=== PATIENT | female | born 1995 | race Two or more races ===

== ENCOUNTER 2020-12-20 18:48 | Emergency (ER) | payer MEDICAID, SELFPAY ==
[2020-12-20 18:49] VITALS: BP 115/79; PULSE 87; RESP 15; TEMP 36.2; O2SAT 99; BMI 30.2
[2020-12-20 20:00] LABS: Absolute Lymphocyte Count 4.03 X10^3/uL (0.83-4.51); Absolute Neutrophil Count 4.7 X10^3/uL (2.0-7.7); Basophil# 0.08 X10^3/uL; Basophil% 0.8 % (0-1); Eosinophil# 0.05 X10^3/uL; Eosinophils% 0.5 % (0-5); Hemoglobin 14.3 g/dL (12.0-15.0); Lymphocyte # 4.03 X10^3/ul (0.83-4.51); Lymphocyte % 41.4 % (19-41); Mean Corpuscular Hgb 30.8 pg (27.0-32.0); Mean Corpuscular Volume 90.5 fL (81-99); Mean Platelet Vol. 8.9 fl (6.2-12.0); Monocyte% 8.2 % (0-10); NRBC Flagged by Analyzer 0 % (0-5); Neutrophil # 4.73 X10^3/uL (2.7-7.7); Neutrophil % 48.7 % (47-70); Platelet Count 348 K/mm3 (150-450); RBC Distribution Width SD 42.6 fl (35.1-43.9); Red Blood Count 4.64 M/mm3 (4.2-5.4); White Blood Count 9.7 K/mm3 (4.4-11.0)
[2020-12-20 20:07] LABS: Bacteria 0 SEEN /hpf (None Seen); Mucous, Urine 0 SEEN /hpf (<or=2+); Red Blood Cells-Urine 0 SEEN /hpf (0-5); White Blood Cells 0 SEEN /hpf (0-5)
[2020-12-20 20:09] LABS: Color, Urine Straw (Yellow); Glucose, Dipstick Normal (Normal); Ketone-Dipstick Negative (Negative); Leukocyte Esterase-Dipstick Negative /ul (Negative); Nitrite-Dipstick Negative (Negative); Occult Blood-Urine Negative /ul (Negative); Protein-Dipstick Negative (Negative); Specific Gravity, Urine 1.005 (1.002-1.030); Urine Bilirubin Dipstick Negative (Negative); Urine Clarity Clear (Clear); Urine Urobilinogen Normal (Normal)
[2020-12-20 20:12] LABS: Internal QC Validated? YES +Cl - CLEAR BKGD; Pregnancy, Serum, hCG Quali. NEGATIVE Negative
[2020-12-20 20:21] LABS: ALB/GLOB Ratio 0.8 RATIO (0.9-2.4); AST(SGOT) 11 U/L (15-37); Alanine Aminotransfer ALT/SGPT 15 U/L (13-56); Albumin, Serum 3.6 g/dL (3.2-5.0); Alkaline Phosphatase 72 U/L (45-117); Anion Gap 10 (5-15); BUN 8 mg/dL (7-18); BUN/Creat Ratio 10.4 RATIO (10-20); Calcium,Total 8.7 mg/dL (8.5-10.1); Chloride 109 mmol/L (98-107); Creatinine, Serum 0.77 mg/dL (0.55-1.02); EST Glomerular Filtration Rate 99 mL/min (>60); Est Glom Filt Rate - Afr Amer 119 mL/min (>60); Estimated Creatinine Clearance 85.75 ml/min; Globulin 4.3 g/dL (2.2-4.2); Glucose 79 mg/dL (74-106); Potassium 3.1 mmol/L (3.5-5.1); Protein, Total 7.9 g/dL (6.4-8.2); Sodium Level 143 mmol/L (136-145)
[2020-12-20 20:25] LABS: Squamous Epithelial Cells - UA 0-5 SEEN /hpf (5-10)
--- NOTE | 2020-12-20 21:15 | EX.ED.DYSGE1 ---
HPI History of Present Illness Chief Complaint: Other, Pain/Inj Informant: patient Onset/Context/Timing Onset: Yesterday Context: Gradual Onset Timing: Continuous Quality: Fever Location: Generalized Worsened by: Nothing Relieved by: Alcohol Narrative Narrative: Patient presents with I feel off. Patient states she has been feeling this way since yesterday. Patient states she had a fever at home but did not take her temperature. Patient admits to some rhinorrhea. Patient admits to nausea. Patient denies any vomiting. Patient admits to some dysuria but denies any hematuria. Patient states she did drink some alcohol today which seemed to help with this feeling. PFSH PFS Medical History Bipolar disorder Post traumatic stress disorder (PTSD) Right humeral fracture Smoker Allergy/AdvReac Type Severity Reaction Status Date / Time No Known Allergies Allergy Verified 12/20/20 18:48 Surgical History (Updated 12/20/20 @ 23:[address] Jasvir Garcia DO) S/P ORIF (open reduction internal fixation) fracture Social History Smoking Status: Current every day smoker tobacco type: cigarettes ROS ROS ED Constitutional Constitutional ED: Reports fever(s) and subjective; Denies chills Eyes Eyes: Denies blurry vision or change in vision ENT ENT ED: Reports rhinorrhea; Denies sore throat Cardiovascular Cardiovascular: Reports chest pain; Denies palpitations Respiratory/Chest Respiratory/Chest: Denies cough or dyspnea Gastrointestinal Gastrointestinal: Reports nausea; Denies vomiting Genitourinary Genitourinary ED: Reports dysuria; Denies hematuria Musculoskeletal Musculoskeletal: Reports neck pain; Denies back pain Integumentary Denies abscess or rash Neurologic Neurologic: Denies headache(s) or weakness Allergic/Immunologic Allergic/Immunologic ED: Denies mouth swelling or urticaria EXAM Physical Exam Const Vital Signs: 12/20/20 18:49 12/20/20 19:19 12/20/20 21:42 Temperature 97.1 F L Temperature Source Temporal Pulse Rate 87 79 Respiratory Rate 15 18 Respiratory Effort Normal Respiratory Pattern Normal Blood Pressure 115/79 135/82 H Blood Pressure Mean 91 Pulse Ox 99 99 Oxygen Delivery Method Room Air Positive well nourished and well developed General Appearance ED: well developed HEENT Reports moist mucous membranes Neck supple and no JVD Resp normal respiratory effort and clear to auscultation bilaterally Cardio regular rate, regular rhythm and no murmurs GI normal to inspection, nondistended, normoactive bowel sounds and non-tender Palpation: soft Extremity normal to inspection General Extremety ED: Negative for edema or tenderness General Extremity: Negative for edema Neuro oriented x3, CN's II-XII intact bilaterally and no sensory deficits noted Sensorium / Orientation: alert Motor Exam: strength 5/5 throughout Psych mental status grossly normal Skin no rashes or lesions noted MDM MDM MDM Narrative Medical decision making narrative: CBC was within normal limits. Comprehensive metabolic profile showed mild hypokalemia of 3.1. Serum hCG was negative. Urinalysis does not show any evidence of urinary tract infection. Patient was given a dose of oral potassium here. Patient was instructed to follow-up with her primary care physician in 5 to 7 days. Patient understood and was agreeable with the plan. All questions were answered. Lab Data Attestation: I reviewed the patient's lab results. Labs: Laboratory Results - last 24 hr 12/20/20 12/20/20 12/20/20 19:50 19:50 19:50 WBC 9.7 RBC 4.64 Hgb 14.3 Hct 42.0 MCV 90.5 MCH 30.8 MCHC 34.0 RDW Std Deviation 42.6 RDW Coeff of Juanjo 13.0 Plt Count 348 MPV 8.9 Immature Gran % (Auto) 0.400 Neut % (Auto) 48.7 Lymph % (Auto) 41.4 H Craig % (Auto) 8.2 Eos % (Auto) 0.5 Baso % (Auto) 0.8 Absolute Neuts (auto) 4.7 Absolute Lymphs (auto) 4.03 Nucleated RBC % 0 Sodium 143 Potassium 3.1 L Chloride 109 H Carbon Dioxide 24.0 Anion Gap 10 BUN 8 Creatinine 0.77 Estim Creat Clear Calc 85.75 Est GFR (MDRD) Af Amer 119 Est GFR (MDRD) Non-Af 99 BUN/Creatinine Ratio 10.4 Glucose 79 Calcium 8.7 Total Bilirubin 0.20 AST 11 L ALT 15 Alkaline Phosphatase 72 Total Protein 7.9 Albumin 3.6 Globulin 4.3 H Albumin/Globulin Ratio 0.8 L Serum , Qual NEGATIVE Urine Color Urine Clarity Urine pH Ur Specific [place] Urine Protein Urine Glucose (UA) Urine Ketones Urine Occult Blood Urine Nitrite Urine Bilirubin Urine Urobilinogen Ur Leukocyte Esterase Urine RBC Urine WBC Ur Squamous Epith Cells Urine Bacteria Urine Mucus 12/20/20 19:59 WBC RBC Hgb Hct MCV MCH MCHC RDW Std Deviation RDW Coeff of Juanjo Plt Count MPV Immature Gran % (Auto) Neut % (Auto) Lymph % (Auto) Craig % (Auto) Eos % (Auto) Baso % (Auto) Absolute Neuts (auto) Absolute Lymphs (auto) Nucleated RBC % Sodium Potassium Chloride Carbon Dioxide Anion Gap BUN Creatinine Estim Creat Clear Calc Est GFR (MDRD) Af Amer Est GFR (MDRD) Non-Af BUN/Creatinine Ratio Glucose Calcium Total Bilirubin AST ALT Alkaline Phosphatase Total Protein Albumin Globulin Albumin/Globulin Ratio Serum , Qual Urine Color Straw Urine Clarity Clear Urine pH 7.0 Ur Specific [place] 1.005 Urine Protein Negative Urine Glucose (UA) Normal Urine Ketones Negative Urine Occult Blood Negative Urine Nitrite Negative Urine Bilirubin Negative Urine Urobilinogen Normal Ur Leukocyte Esterase Negative Urine RBC 0 SEEN Urine WBC 0 SEEN Ur Squamous Epith Cells 0-5 SEEN Urine Bacteria 0 SEEN Urine Mucus 0 SEEN Discharge Plan Triage Chief Complaint: Other, Pain/Inj ED Provider: Jasvir Garcia Dx/Rx/DC Orders Clinical Impression: General weakness, Hypokalemia Instructions: ED Hypokalemia, ED Weakness (Uncertain Cause) Primary Care Provider: Care Physician,No Primary Referrals: Tana Ryder [NON-STAFF] - 3-5 Days Care Physician,No Primary [Primary Care Provider] - Disposition Disposition: Home, Self Care Discharge Date/Time: 12/20/20 21:42
[2020-12-20] MEDS: Potassium Chloride Oral Tablet 20 MEQ 40 MEQ PO (21:37)
[2020-12-20 21:42] VITALS: BP 135/82; PULSE 79; RESP 18; O2SAT 99
== END 2020-12-20 21:42 | disposition home or self-care (01) ==
PROVIDERS: Emergency Provider Emergency Medicine
DX: R53.1 Weakness (principal); E87.6 Hypokalemia; F17.210 Nicotine dependence, cigarettes, uncomplicated
CPT/HCPCS: 80053; 81001; 84703; 85025; 99284

== ENCOUNTER 2021-01-03 22:40 | Emergency (ER) | payer MEDICAID, SELFPAY ==
[2021-01-03 22:41] VITALS: BP 136/87; PULSE 150; RESP 18; TEMP 36.7; O2SAT 96; BMI 30.2
--- NOTE | 2021-01-03 23:52 | EX.ED.DYSGE1 ---
HPI History of Present Illness Chief Complaint: Anxiety Informant: patient Narrative Narrative: 25-year-old female presenting to the emergency room stating that she is having prophecies, seizures, and her heart hurts. She would like me to transfer her to [facility] because I will not discussed my jacki with her. I asked her to please provide me some symptomology and she states that is her symptomology. I asked her how I can help her tonight and she states that I cannot and that she wishes to leave. PFSH [facility] Medical History Bipolar disorder Post traumatic stress disorder (PTSD) Right humeral fracture Smoker Substance abuse Home Medications NK 01/03/21 [History Last Taken Unknown] Allergy/AdvReac Type Severity Reaction Status Date / Time No Known Allergies Allergy Verified 12/20/20 18:48 Surgical History S/P ORIF (open reduction internal fixation) fracture Social History (Updated 01/03/21 @ 23:[address] Braydon Rivero DO) Smoking Status: Current every day smoker tobacco type: cigarettes substance use type: does not use ROS ROS ED Cardiovascular Cardiovascular: Reports chest pain Neurologic Neurologic: Reports other Details: Seizures EXAM Physical Exam Const Vital Signs: 01/03/21 22:41 Temperature 98.1 F Temperature Source Temporal Pulse Rate 150 H Respiratory Rate 18 Blood Pressure 136/87 H Blood Pressure Mean 103 Pulse Ox 96 Oxygen Delivery Method Room Air Positive well nourished and well developed General Appearance ED: well developed HEENT Reports normocephalic, head/scalp atraumatic and moist mucous membranes Eyes PERRL and EOMs intact bilaterally Neck no lymphadenopathy, supple and no JVD Resp normal respiratory effort and clear to auscultation bilaterally Cardio regular rate and no murmurs Rate: tachycardic GI normal to inspection, nondistended, normoactive bowel sounds and non-tender Palpation: soft Back/Spine no CVA tenderness and normal ROM Extremity normal to inspection General Extremety ED: Negative for edema General Extremity: Negative for edema Neuro oriented x3 and CN's II-XII intact bilaterally Sensorium / Orientation: alert Motor Exam: strength 5/5 throughout Psych mental status grossly normal Mood & Affect: Negative for depressed or tearful Skin no rashes or lesions noted and no wounds MDM MDM MDM Narrative Medical decision making narrative: I informed the patient that I cannot simply call [facility] and transfer her there on the basis of what she is telling me. She states that then I am not the person that can help her and she would like to leave. At this point I am not seeing an obvious emergency. Her heart rate on my examination is 103. Patient is ANO x3 and appears to have the capacity to make this decision. Discharge Plan Triage Chief Complaint: Anxiety ED Provider: Braydon Rivero Dx/Rx/DC Orders Clinical Impression: Chest pain Instructions: ED Chest Pain, Uncertain Cause Prescriptions: No Action NK RF: 0 Primary Care Provider: Care Physician,No Primary Referrals: Isela Null MD [STAFF PHYSICIAN] - As soon as possible (for primary care) Care Physician,No Primary [Primary Care Provider] - Disposition Disposition: Against Medical Advice
[2021-01-04 00:11] VITALS: RESP 16
== END 2021-01-04 00:12 | disposition left against medical advice (07) ==
PROVIDERS: Emergency Provider Emergency Medicine
DX: R07.9 Chest pain, unspecified (principal); F17.210 Nicotine dependence, cigarettes, uncomplicated
CPT/HCPCS: 99282

== ENCOUNTER → 2021-02-05 16:48 | Outpatient (CLI) | payer MEDICAID, SELFPAY ==
[2021-02-05 17:46] LABS: Hemoglobin A1c 4.9 % (3.8-5.6)
[2021-02-05 17:55] LABS: Vitamin B12 321 pg/mL (211-911); Vitamin D,25 Hydroxy 20.8 ng/mL
[2021-02-05 18:02] LABS: ALB/GLOB Ratio 0.8 RATIO (0.9-2.4); AST(SGOT) 11 U/L (15-37); Alanine Aminotransfer ALT/SGPT 19 U/L (13-56); Albumin, Serum 3.3 g/dL (3.2-5.0); Alkaline Phosphatase 79 U/L (45-117); Anion Gap 6 (5-15); BUN 13 mg/dL (7-18); BUN/Creat Ratio 14.7 RATIO (10-20); Calcium,Total 8.6 mg/dL (8.5-10.1); Chloride 105 mmol/L (98-107); Creatinine, Serum 0.88 mg/dL (0.55-1.02); EST Glomerular Filtration Rate 84 mL/min (>60); Est Glom Filt Rate - Afr Amer 101 mL/min (>60); Ferritin 20 ng/mL (8-252); Globulin 4.1 g/dL (2.2-4.2); Glucose 85 mg/dL (74-106); Iron 78 ug/dL (50-170); Iron Binding Capacity,Total 355 ug/dL (250-450); Protein, Total 7.4 g/dL (6.4-8.2); Sodium Level 138 mmol/L (136-145); Thyroid Stim Hormone (TSH) 0.95 uIU/mL (0.358-3.74)
[2021-02-07 10:02] LABS: Thyroid Peroxidase AB < 8 IU/mL (0-34)
== END ==
PROVIDERS: Visit Provider Nurse Practitioner Adult Health
DX: R53.1 Weakness (principal); F25.9 Schizoaffective disorder, unspecified
CPT/HCPCS: 36415; 80053; 82306; 82607; 82728; 83036; 83540; 83550; 84439; 84443; 86376